=== PATIENT | male | born 1975 | race Caucasian/White ===

== ENCOUNTER 2023-10-13 23:19 | Observation (INO) | payer OTHER, SELFPAY ==
[2023-10-13 16:42] VITALS: BP 160/95
[2023-10-13 16:58] LABS: % Basophils 0.5 % (0-2); % Eosinophils 2.3 % (0-6); % Immature Granulocytes 0.2 % (0-0.5); % Lymphocytes 30.8 % (20.5-51.1); % Monocytes 7.3 % (1.7-9.3); % Neutrophils 58.9 % (42.2-75.2); Absolute Basophils 0.1 10^3/uL (0-0.2); Absolute Eosinophils 0.2 10^3/uL (0-0.7); Absolute Monocytes 0.7 10^3/uL (0.1-0.6); Absolute Neutrophils 5.8 10^3/uL (1.4-6.5); Hematocrit 47.3 % (39.0-52.0); Hemoglobin 16.5 g/dL (13.0-18.0); Mean Corp Hgb Conc. 34.9 g/dL (33.0-37.0); Mean Corpuscular Hgb 32.8 pg (27.0-31.0); Mean Platelet Volume 8.9 fL (7.4-10.4); Nucleated Red Blood Cells % 0 % (-); Platelet Count 332 10^3/uL (130-400); Red Blood Cell Count 5.03 10^6/uL (4.70-6.10); Red Cell Dist. Width 12.9 % (11.5-14.5); White Blood Cell Count 9.8 10^3/uL (4.8-10.8)
[2023-10-13 17:10] LABS: ALT (SGPT) 27 U/L (0-50); AST (SGOT) 28 U/L (17-59); Albumin 4.7 g/dl (3.5-5.0); Alkaline Phosphatase 64 U/L (38-126); Blood Urea Nitrogen 16 mg/dl (9-20); Calcium 9.7 mg/dl (8.4-10.2); Carbon Dioxide 27 mmol/L (22-30); Chloride 105 mmol/L (98-107); Glucose 136 mg/dl (70-99); Lipase 73 U/L (23-300); Potassium 3.8 mmol/L (3.5-5.1); Sodium 139 mmol/L (135-145); Total Bilirubin 0.5 mg/dl (0.2-1.3); Total Protein 7.2 g/dl (6.3-8.2); eGFR > 60.00
--- NOTE | 2023-10-13 18:20 | ED.GENMED ---
History of Present Illness
General
Chief Complaint: Abdominal Pain
Source: patient, spouse and previous radiology exam
Exam Limitations: none
Time Seen by Provider: 10/13/23 18:05
Nursing documentation reviewed up to this point in time: agreed with
History of Present Illness
History of Present Illness:
48-year-old male limited past medical history he is a drinker smoker, left groin swelling for some time developed pain a week or 2 ago
Nausea without vomiting, no bowel movement for for 5 days he is only passing small pebble-like stools with straining he was seen in the ER few years ago had a CAT scan which I reviewed showed diverticulosis of the sigmoid region
Past History
Past History
ED Past Medical History: Other (Pneumonia, chronic back pain)
ED Past Surgical History: Orthopedic (R knee surg)
Social History
Tobacco: Smoker
Alcohol: Daily (2-3 beers daily.)
Drug: None
Personal: Single
Living: with family
Employment: Employed
Family History
Family History: Other
Review of Systems
Review of Systems
All Other Systems: Not applicable
Constitutional: Denies fatigue
EENT: Reports no symptoms
Respiratory: Reports no symptoms
Cardiac: Reports no symptoms
ABD/GI: Reports abdominal pain, nausea and constipated
: Reports other (Left groin swelling)
Neurological: Reports no symptoms
Endocrine: Reports no symptoms
Hematologic/Lymphatic: Reports no symptoms
Psychiatric: Reports no symptoms
Phy Exam
General Physical Exam
General Presentation: mild distress
General age: appears stated age
General Hydration: appears well hydrated
Cardiovascular Exam
Cardiovascular Exam: regular rate/rhythm
Pulmonary Exam
Pulmonary Exam: lungs clear
Gastrointestinal Exam
Gastrointestinal Exam: no indwelling devices and other (slightly distended, decreased bs, diffuse tender, tender mass in left inguinal region/groin)
Mental
Mental Status: oriented to person, oriented to place, oriented to time and usual mental status
Describe Speech: normal speech
Musculoskeletal Exam
Musculoskeletal Exam: no edema
Skin Exam
Skin Exam: normal color
Psychiatric Exam
Psychiatric Exam: normal mood/affect
Course
Orders/Labs/Results
Orders:
Orders
10/13/23 16:49
CMP [Comprehensive Metabolic Panel] Urgent
Complete Blood Count/With Diff Urgent
Lipase Urgent
10/13/23 18:12
Iohexol [Omnipaque] See Protocol PO NOW STA
10/13/23 18:13
CT Abd/pel W Iv And Oral Contr Urgent
Comment:
Reason For Exam: groin hernia
0.9% Sodium Chloride 1000 ml [Nss] 1,000 ml IV BOLUS
HYDROmorphone [Dilaudid] 1 mg IV NOW STA
Ondansetron Injectable [Zofran] 4 mg IV NOW STA
10/13/23 21:21
HYDROmorphone [Dilaudid] 1 mg IV NOW STA
10/13/23 23:00
Admit/Transfer Patient As Directed
Co-Sign Provider:
Level of Care: Observation services
Assign to:: Medical/Surgical
Physician / Group: General Surgery
Diagnosis: inguinal hernia
10/13/23 23:01
PRN Pain Medication Management As Directed
May give lesser potent ordered pain med per pt: Yes
preference::
Protocol:: Medication orders for pain may be administered in a
manner that supports deferring to patient preference
when the pt is:
- Requesting an ordered lesser potent pain medication.
Least to most potent pain medications are defined
as: acetaminophen < NSAID < tramadol < opioids
(morphine, oxycodone, hydromorphone).
- Requesting a lesser dose of the same medication IF
ORDERED.
- Requesting a less intrusive route of administration
if both routes are prescribed by the provider (PO <
IV).
10/13/23 23:02
Code Status As Directed
Resuscitation Status: Full Code
10/14/23 00:21
0.9% Sodium Chloride 1000 ml [Nss] 1,000 ml IV 100 mls/hr
Docusate W/Senna [Senokot-S] 1 tablet PO DAILYPRN PRN
HYDROmorphone [Dilaudid] 0.5 mg IV Q2HPRN PRN
HYDROmorphone [Dilaudid] 1 mg IV Q2HPRN PRN
Ketorolac [Toradol] 10 mg IV Q6HPRN PRN
Ondansetron Injectable [Zofran] 4 mg IV Q6HPRN PRN
10/14/23 00:21
Activity As Directed
Activity Level: As Tolerated
Intake/ Output As Directed
Frequency: Per unit guidelines
Pneumatic Compression Sleeves As Directed
Type: Knee high
Vital Signs As Directed
Frequency: Per unit guidelines
DX Deep Vein Thrombosis Video Routine
10/14/23 Breakfast
NPO
Allow oral meds: Yes
Allow clear liquids: 4hrs prior to procedure
Comment: may have unrestricted clear liquid up to 4 hrs prior to scheduled procedure
Abnormal Lab Results
10/13/23
16:49
MCH 32.8 H pg
(27.0-31.0)
Absolute Monos (auto) 0.7 H 10^3/uL
(0.1-0.6)
Glucose 136 H mg/dl
(70-99)
10/13/23 16:49
10/13/23 16:49
Vital Signs
Initial and Last Documented VS:
Initial Vital Signs
Temp Pulse Resp BP Pulse Ox
98.6 F 96 16 160/95 96
10/13/23 16:42 10/13/23 16:42 10/13/23 16:42 10/13/23 16:42 10/13/23 16:42
Last Documented Vital Signs
Temp Pulse Resp BP Pulse Ox
97.7 F 60 18 147/90 100
10/14/23 00:20 10/14/23 00:20 10/14/23 00:20 10/14/23 00:20 10/14/23 00:20
Procedures
Other
Indication for procedure:: Symptomatic left inguinal hernia reduction
Procedure completed by: Linda
Consent form signed: No
Additional Procedure:
Verbal consent timeout IV analgesia reverse Trendelenburg direct pressure unable to completely reduce patient's hernia we will proceed with CAT scan
MDM/Problems Addressed
Differential Diagnosis Includes:
symptomatic hernia, sbo, incarcerated hernia, tics, mass
MDM/Problems Addressed:
groin pain
Chronic conditions affecting care:
tic on prior CT
*Critical Care Note
Total Time (30-74mins, 75-104mins- exclusive of procedures): Not Applicable
Update Note
Update Note:
Update CAT scan noted second attempt at reduction of the hernia unsuccessful, despite IV narcotics reverse Trendelenburg direct pressure and ice, no skin changes normal white count no vomiting,
ED Attending Note
-
Portions of this chart may have been created with voice recognition software.� Occasional wrong word or��sound alike� substitutions may have occurred due to the inherent limitations of voice recognition software.
Discharge Plan
Departure
Patient Disposition: Admit
Date of Disposition: 10/13/23
Time of Disposition: 22:21
Admit to: Med/Surg
Presentation/result/management discussed w/ accepting MD/DO: ONEIDA
Patient with high blood pressure during this ER visit?: No
Condition: Good
Covid-19: Not Applicable
Discharge Problem:
Inguinal hernia
Interventions
Interventions:
*Risk Screen - Suicide Last Done: 10/13/23 18:08
*General Assessment Last Done: 10/13/23 18:08
*Neglect/Abuse Screening Last Done: 10/13/23 18:08
ED- Fall Risk Assessment Last Done: 10/13/23 18:08
*Nursing Disposition Last Done: 10/14/23 00:18
IH-Oymnwi-Sogmvdqbrt Assessment Last Done: 10/13/23 18:08
Discharge Date and Time
Discharge Date/Time: 10/14/23 00:18
[2023-10-13] MEDS: ZOFRAN 4 MG IV (18:21)
[2023-10-13] MEDS: OMNIPAQUE 50 ML PO (18:21)
[2023-10-13] MEDS: NSS 1000 IV (18:22)
[2023-10-13] MEDS: DILAUDID 1 MG IV ×2 (18:22→21:24)
[2023-10-13 19:59] VITALS: BP 164/72
--- NOTE | 2023-10-13 23:08 | HPS.HSE ---
Addendum entered and electronically signed by Sammy Bassett MD 10/14/23 10:07:
I saw and examined the patient independently.
The Ambulance Attendant's note was reviewed and I agree with the note, assessment and plan except where noted below.
Comment: This is a 48-year-old male who presents with left lower quadrant/groin pain in the setting of a known left inguinal hernia. He was found to have an incarcerated left inguinal hernia containing sigmoid colon without any concern for threat
to the bowel in the emergency department. Fortunately, we were able to reduce this at bedside this morning.
Due to OR schedule today, will plan on surgery tomorrow.
Okay for p.o. diet, n.p.o. at midnight.
Okay to Hep-Lock IV fluids now, resume after midnight.
Will plan for a robotic left inguinal hernia repair with mesh.
Risks/Benefits/Alternatives, expected postoperative course and possible complications (bleeding, infection, injury to surrounding structures, acute/chronic pain) discussed at length. Patient wishes to proceed with surgery. All questions answered.
Consent obtained.
I spent roughly 60 minutes in total for the care of this patient today including direct patient care and counseling, reviewing labs, imaging, coordination of care, as well as documentation.
Original Note:
Family Physician
-
Family Physician: * NONE
Chief Complaint
-
Groin Pain
History of Present Illness
Patient is a 48-year-old male with no significant past medical history. Patient presented to [facility] ED today for evaluation of intolerable groin pain that started approximately 2 weeks ago. Patient stated that pain and some swelling started
approximately 2 weeks ago, was intermittent in the beginning and has become more persistent over past 5-7 days. He describes pain as, 'burning, and difficult to describe.' He stated, when he returned home today after being away he unpacked his truck
and came for evaluation because he could no long tolerate the pain. Patient states he drinks 5-7 beers 3 times a week, he last drank less than 48 hours ago while away. He is a current smoker (2packs perday currently) with a 25 pack per year history.
Patient has had constipation with last bowel movement on 10/08/2023 and has noted some urinary urgency/frequency. Denies fevers, chest pain, shortness of breath, nausea, vomiting, diarrhea and no sick contact. Patient to be admitted for observation
on Dr. Watt's service.
Medical History
Past Medical History
Past Medical History: Reports None
Past Surgical History: Reports Orthopedic (3 left rotator cuff surgeries and right ACL)
Social History
Tobacco: Smoker (2 packs per day, with 25 pack per year history)
Alcohol: Other (5-6 beers, 3 times per week, last drink less than 24-hours ago)
Drug: Marijuana (smokes daily)
Personal:
Living: With Family
Employment: Employed
Family History
Family History: Not pertinent
Allergies / Home Medications
Allergies reflects when Allergies were last updated in [employer].
Home Medications with original date entered in [employer]
Allergy/Medication List:
Allergies
Allergy/AdvReac Type Severity Reaction Status Date / Time
Penicillins Allergy Swelling Verified 07/24/18 20:48
Home Medications Table - record
�Medication �Instructions �Recorded �Confirmed
ketorolac 10 mg tablet 10 mg PO Q6HPRN PRN pain #8 tabs 07/25/18
Review of Systems
-
History Source: Patient
A 12 point ROS was completed and negative except as noted: Yes
Constitutional: Reports No Symptoms
EENT: Reports No Symptoms
Respiratory: Reports No Symptoms
Cardiac: Reports No Symptoms
Abdomen/GI: Reports Abdominal Pain and Pain
: Reports Urgency
Musculoskeletal: Reports No Symptoms
Skin: Reports No Symptoms
Neurological: Reports No Symptoms
Endocrine: Reports No Symptoms
Hematologic/Lymphatic: Reports No Symptoms
Psych: Reports No Symptoms
Physical Exam
Vital Signs
Vital Signs
Temp Pulse Resp BP Pulse Ox
98.6 F 90 18 164/72 97
10/13/23 16:42 10/13/23 19:59 10/13/23 19:59 10/13/23 19:59 10/13/23 19:59
Physical Exam
General: Well Developed, Well Nourished, No Apparent Distress, Conversant and Appears in Distress
HEENT: NormoCephalic, Moist mucous membranes, PERRLA, [place] Conjunctivae, Nose Appears Normal and Ears Appear Normal
Respiratory: Clear and Non Labored Respirations
Cardiac: S1/S2 and Regular Rhythm
Breast: Deferred by me
GI: Soft, Non Tender, Normal Bowel Sounds, Tender and Other (left side inguinal hernia)
Rectal: Deferred by Provider
Genito-urinary: Deferred by me and No costovertebral tender
Musculoskeletal: No Clubbing, No Cyanosis and No Edema
Skin: Warm, Dry and IV/Catheter Site
Neuro: Awake and AO x 3
Psych: Calm and Intact Judgment/Insight
Laboratory Results
-
10/13/23 16:49
10/13/23 16:49
Laboratory Results
Total Bilirubin 0.5 mg/dl (0.2-1.3) 10/13/23 16:49
AST 28 U/L (17-59) 10/13/23 16:49
ALT 27 U/L (0-50) 10/13/23 16:49
Alkaline Phosphatase 64 U/L (38-126) 10/13/23 16:49
Lipase 73 U/L (23-300) 10/13/23 16:49
Data Reviewed
-
CT Scan: Report Reviewed by me
Impression/Plan
-
IMPRESSION:
Patient is a 48-year-old male with no significant past medical history. Patient presented to [facility] ED today for evaluation of intolerable groin pain that started approximately 2 weeks ago. Patient stated that pain and some swelling started
approximately 2 weeks ago, was intermittent in the beginning and has become more persistent over past 5-7 days. He describes pain as, 'burning, and difficult to describe.' He stated, when he returned home today after being away he unpacked his truck
and came for evaluation because he could no long tolerate the pain. Patient states he drinks 5-7 beers 3 times a week, he last drank less than 48 hours ago while away. He is a current smoker (2packs perday currently) with a 25 pack per year history.
Patient has had constipation with last bowel movement on 10/08/2023 and has noted some urinary urgency/frequency. Denies fevers, chest pain, shortness of breath, nausea, vomiting, diarrhea and no sick contact. Patient to be admitted for observation
on Dr. Watt's service.
PLAN:
#indirect left inguinal hernia
- Admit to observation under Dr. Watt's service
- NPO after midnight
- Pain regimen
- IVF
NPO
Full Code
DVT Prophylaxis: SCDs
[2023-10-13 23:34] VITALS: BP 133/87
[2023-10-13 23:35] VITALS: BMI 33.2
[2023-10-14 00:20] VITALS: BP 147/90; BMI 32.2
[2023-10-14] MEDS: NSS 1000 IV (00:46)
[2023-10-14 07:50] VITALS: BP 135/97
--- NOTE | 2023-10-14 11:28 | CM ---
IA completed. Observation form signed & placed in chart.
Dx: Inguinal Hernia
Patient lives at home in a 2 story home with is (nurse)
Patient states they live on the 1st floor - has a bathroom
PLOF: Independent, drives.
Patient to have surgery tomorrow. NPO after mn.
PCP: In the process of finding a PCP-states new insurance
Pharmacy: [facility]
PLAN: Surgery in the am. Discharge to home when stable. follow up for discharge planning needs.
/friend to transport home.
[2023-10-14] MEDS: NSS IV (12:45)
[2023-10-14 15:45] VITALS: BP 145/92
[2023-10-14] MEDS: SENOKOT-S 1 TABLET PO (16:06)
[2023-10-14 23:00] VITALS: BP 147/90
[2023-10-15] VITALS (10 sets, daily range): BP systolic 129–171; BP diastolic 82–97
[2023-10-15] MEDS: NSS 1000 IV ×2 (06:02→13:38)
--- NOTE | 2023-10-15 06:25 | PTCARENOTE ---
Pt's IVFs were d/c'd yesterday, however hospitalist note says to restart after midnight. House MOLECULAR SPECTROSCOPIST Moira Moyer notified, order for IV NS at 100 mL/hr placed. Pt is NPO for OR today. Pt updated on plan of care by this RN.
--- NOTE | 2023-10-15 07:31 | W.SUR.PREOP ---
Pre-Operative Surgical Note
-
I have examined this patient prior to the performance of the scheduled procedure.
The patient's condition is unchanged from the time of the current History and
Physical and the patient is able to undergo the scheduled procedure.
Risks/Benefits/Alternatives, expected postoperative course and possible complications (bleeding, infection, injury to surrounding structures, acute/chronic pain) discussed at length. Patient wishes to proceed with surgery. All questions answered.
Consent obtained. Patient marked
[2023-10-15] MEDS: CLEOCIN 50 IV (07:56)
--- NOTE | 2023-10-15 13:03 | W.IMMPOSTOP ---
Surgical Immed Post Op Note
-
Primary Surgeon: Sammy Bassett MD
Assisting Surgeon: None
Pre-op Diagnosis: Incarcerated left inguinal hernia
Post-op Diagnosis: Same
Procedure Performed: Robotic left inguinal hernia repair with mesh
Anesthesia Type: General
Specimen / Cultures: Left inguinal cord lipoma
Estimated Blood Loss: 11 cc
Complications: None
Operative Findings: Hernia reduced with induction of anesthesia. It appeared the sigmoid colon was in the hernia defect but appeared viable. Very large left indirect inguinal hernia with the moderate-sized cord lipoma. The hernia was reinforced
with an extra-large mid weight Bard uncoated polypropylene mesh.
POST OP PLAN:
Imaging: None
Labs: Routine AM
Diet: Advance to Regular as tolerated
Analgesia: Tylenol 650mg q6 Bel, Trudy 5mg q6 PRN, Dilaudid 0.5mg q2h PRN
Neuro/vascular checks: q4h
AC/AP: Hold Therapeutic AC, Ok for DVT PPx
Activity: Ad Hailee
Wound/Incisions/Drains: Routine
Abx: None
Dispo: RNF, anticipate discharge home tomorrow.
--- NOTE | 2023-10-15 14:10 | PTCARENOTE ---
1405: Patient arrived to 2S. Full head to toe assessment completed. Lap sites open to air, clean dry and intact. IVF running per order. Patient wearing 2L NC with SpO2 greater than 92%. Call lewis within reach and bed in lowest position.
--- NOTE | 2023-10-15 19:35 | PTCARENOTE ---
pt d/c, rec'd and discharge instructions reviewed, IV pulled, verbalized understanding with no concerns.
--- NOTE | 2023-10-16 09:30 | CM ---
Patient discharged 10/15/23 @ 7:30PM. No needs.
--- NOTE | 2023-10-21 13:59 | OR.RPT ---
Operative Report
Operative Report
Patient Name: Darrin Webster
: 1975
Date of Operation: 10/15/2023
Preoperative Diagnosis: Incarcerated left inguinal hernia
Postoperative Diagnosis: Same
Procedure(s):
Robotic incarcerated left inguinal hernia repair with mesh (PEPITO approach)
Surgeon(s):
Dr. Bassett
Partner Marketing Manager(s):
MENDEZ Jeffries
Anesthesia: General
Estimated Blood Loss: 11 cc
Urine Output: None
Drains/Lines/Implants: X-Large 3D Max Bard mid weight mesh
Specimens: None
Indication for surgery: The patient has a history of groin pain and noted on exam to have a partially reducible, but incarcerated left inguinal hernia. This was a found to be sigmoid colon on CT. Following review of therapeutic options they have
elected to undergo a minimally invasive repair.
Operative Findings: Hernia reduced with induction of anesthesia. It appeared the sigmoid colon was in the hernia defect but appeared viable. Very large left indirect inguinal hernia with the moderate-sized cord lipoma. The hernia was reinforced
with an extra-large mid weight Bard uncoated polypropylene mesh.
Details of the operation:
The patient was brought to the Operating Room and placed in the supine position with the arms tucked. IV antibiotics were infused and Venodyne stockings placed. Following uneventful induction of general endotracheal anesthesia, an orogastric tube
were placed. We were able to palpate what was left of the hernia and reduced successfully at bedside. The abdomen was prepped and draped in the usual sterile fashion. The abdomen was entered using a Veress technique which required 1 pass,
pneumoperitoneum to 15 mmHg was obtained without difficulty. An 8mm trochar was passed through the abdominal wall roughly 20 cm cephalad to the inguinal canal. We then confirmed that no inadvertent injury was made while passing the trocar or Veress
needle. We then placed two additional 8 mm ports in the left upper and right upper quadrants. We then docked the robot with a Prograsper in the left hand port and monopolar scissors in the right. A large left indirect inguinal hernia was
identified, there was no sliding component though some epiploic appendages from the sigmoid colon were attached to the inferior portion of the peritoneum. The sigmoid colon otherwise slept healthy and viable. We then began by creating a flap at
the level of the ASIS laterally working our way medially to the medial umbilical fold. Staying onto the peritoneum we were able to circumferentially dissect around the hernia sac and and peel it off of the underlying spermatic cord and testicular
vessels, taking care to preserve them. Medially we identified the midline pubis as well as Chris's ligament and ensured to dissect 2 cm below the pubic rim over the bladder. After exposure of the entire myopectineal orifice we identified and
reduced: A very large sized indirect inguinal hernia, no direct inguinal hernia, no femoral hernia, and a medium cord lipoma, which was removed
We then fixated an XL 3D max mesh with a 2-0 Vicryl stitch at coopers medially and superior laterally. The flap was then closed with a running 2-0 barbed monocryl suture ensuring that the tail was cut flush with the medial fat pad so that no barbs
were exposed. During the closure of the flap an Angiocath was inserted and 20 cc of quarter percent Marcaine was instilled. The area in the flap cavity was then evacuated of air confirming that the mesh was flush and there were no folds. A small
rent in the peritoneum was noted and closed with 2-0 Vicryl. All needles and instruments were then removed and the robot was undocked. The abdomen was then desufflated, and pneumoperitoneum evacuated. All skin sites were then closed with 4-0
Monocryl followed by Dermabond. Counts were correct and overall, the patient tolerated the procedure well and was taken to the Recovery Room postoperatively in stable condition.
I was the attending physician and performed the procedure with assistance of the ROLL TABLE OPERATOR above. I was present for all portions of the case
Sammy Bassett MD
== END 2023-10-15 20:29 | disposition home or self-care (01) ==
LOC: 2 SOUTH 23:19
PROVIDERS: Emergency Medicine; ADMITTING PHYSICIAN Surgery; EMERGENCY PHYSICIAN Emergency Medicine
DX: K40.30 Unilateral inguinal hernia, with obstruction, without gangrene, not specified as recurrent (principal); D17.6 Benign lipomatous neoplasm of spermatic cord; R11.0 Nausea; G89.29 Other chronic pain; F10.90 Alcohol use, unspecified, uncomplicated; K59.00 Constipation, unspecified; F17.210 Nicotine dependence, cigarettes, uncomplicated; Z87.01 Personal history of pneumonia (recurrent); Z88.0 Allergy status to penicillin
CPT/HCPCS: 49650; 55559; S2900; 88304; 74177; 80053; 83690; 85025; 96361; 96374; 96375; 96376; 99285; 99406; C1781; G0378; Q9967